=== PATIENT | female | born 1990 | race Caucasian/White ===

== ENCOUNTER 2017-03-15 15:02 | Inpatient (IN) | payer BC, OTHER ==
[~2017-03-15] VITALS: Ht 157.5 cm; Wt 49.4 kg
[2017-03-15 16:10] VITALS: BP 110/56
--- NOTE | 2017-03-15 16:22 | NUR ---
PRE-ASSESSMENT Pt is in intake office at this time. Pt is A/O x4, but reports "I am sleepy because I am coming off the meth." V/S: 98.2, HR:83, RR:16 even and unlabored, B/P:110/56, SpO2:99% room air, denies pain at this time. Pt ambulates with a steady gait. Pt noted to have bilateral arm swelling that she states are from IV drug use and are "possible abscesses." Pt is stable at this time. To continue admission when patient arrives on unit.
[2017-03-15 16:31] LABS: *URINE HCG, QUAL NEGATIVE (NEGATIVE)
--- NOTE | 2017-03-15 16:35 | NUR ---
ADMISSION NOTE Pt is a 26 year old male, admitted on 03/15/17 at 1635 for Benzo, Barbiturate, Opiate and methamphetamine dependence and medically supervised withdrawals. Pt is awake, alert, oriented x 4, gait is steady, pt is ambulatory without assistance. Pt denies having a PCP. Pt reports she has been to at least 10 rehabs but cannot recall any names, last rehab was in [place] 2 months ago for 1 week. Reports medical hx of insomnia, anxiety and depression. Denies talking any prescribed or OTC medication, pt does not have home medication. Denies history of seizures. Pt reports she was sober for 3 years in [id number]. Pt appears to be anxious and states she feels tired due to lack of sleep. COWS are 6, difficulty sitting still, mild diffuse muscle aches, yawning and CIWA is 6. Pt weights 109 pounds and height is 5'2. Pt states that she lives in a house with her boyfriend. Reports smoking 1 pack of cigarettes daily. Pt denies being admitted to a hospital in the past 30 days, pt is not a candidate for MRSA. V/S are T:98.2, HR is 83, SpO2 is 99%, RR 16 even and unlabored, B/P is 110/56, denies pain at this time. Denies SI/HI or hallucinations. Refuses PNA vaccination at this time. Pt is stable. Safety precautions are in place per hospital protocol, bed is locked and in lowest position, side rails up x2, call light within reach. Pt remains stable. Substance use Hx: 1.PO Xanax-10-20 mg-last used 10 mg on 03/06/17 2.PO Phenobarbital-120mg every 4 hours, last used 120 mg on 03/14/17 3.IV Heroin-2 grams daily-last used gram on 03/15/17 4.IV Igyfzerkiclqyxr-vrexhft-bjza used small amount on 03/15/17 at 1100
[2017-03-15 16:42] LABS: *AMPHETAMINE, URINE POSITIVE (NEGATIVE); *BARBITURATE, URINE POSITIVE (NEGATIVE); *CANNABINOID, URINE NEGATIVE (NEGATIVE); *COCCAINE, URINE NEGATIVE (NEGATIVE); *OPIATE, URINE POSITIVE (NEGATIVE); *PHENCYCLIDINE SCREEN,URINE NEGATIVE (NEGATIVE)
[2017-03-15] MEDS ORDERED: LOPERAMIDE HCL 2 MG CAPSULE PO PRN ×2 (17:00)
[2017-03-15] MEDS ORDERED: ONDANSETRON ODT 4 MG TAB.RAPDIS SL PRN (17:00)
[2017-03-15] MEDS ORDERED: BUPRENORPHINE HCL 2 MG TAB.SUBL SL PRN (17:00)
[2017-03-15] MEDS ORDERED: ACETAMINOPHEN 325 MG TABLET PO PRN (17:00)
[2017-03-15] MEDS ORDERED: DICYCLOMINE HCL 20 MG TABLET PO PRN (17:00)
[2017-03-15] MEDS ORDERED: HYDROXYZINE PAMOATE 25 MG CAPSULE PO PRN (17:00)
[2017-03-15] MEDS ORDERED: MAG HYDROX/AL HYDROX/SIMETH 30 ML LIQUID UDC PO PRN (17:00)
[2017-03-15] MEDS ORDERED: ONDANSETRON 4 MG/2 ML VIAL IM PRN (17:00)
[2017-03-15] MEDS ORDERED: MIRALAX 17 GM POWD.PACK PO PRN (17:00)
[2017-03-15] MEDS ORDERED: MAGNESIUM HYDROXIDE 30 ML LIQUID UDC PO PRN (17:00)
[2017-03-15] MEDS ORDERED: diphenhydrAMINE 50 MG CAPSULE PO PRN (17:00)
[2017-03-15 17:25] LABS: BASOPHILS # (AUTO) 0.1 K/uL (0.0-8.0); EOSINOPHILS # (AUTO) 0.1 K/uL (0.0-0.7); EOSINOPHILS % (AUTO) 0.8 % (0.0-7.0); HEMATOCRIT 33.9 % (31.2-41.9); HEMOGLOBIN 11.6 g/dL (10.9-14.3); LYMPHOCYTES # (AUTO) 1.5 K/uL (20.0-40.0); LYMPHOCYTES % (AUTO) 11.2 % (20.5-51.5); MEAN CORPUSCULAR HEMOGLOBIN 31.9 uug (24.7-32.8); MEAN CORPUSCULAR HGB CONC 34 g/dL (32.3-35.6); MEAN CORPUSCULAR VOLUME 92.9 fL (75.5-95.3); MONOCYTES # (AUTO) 0.4 K/uL (2.0-10.0); MONOCYTES % (AUTO) 3.4 % (0.0-11.0); NEUTROPHILS # (AUTO) 10.9 K/uL (1.8-8.9); NEUTROPHILS % (AUTO) 83.6 % (38.5-71.5); PLATELET COUNT (AUTO) 396 K/uL (179-408); RED BLOOD CELL COUNT(AUTO) 3.65 MIL/uL (3.63-4.92)
[2017-03-15] MEDS ORDERED: LORAZEPAM 2 MG/1 ML VIAL IM PRN (17:30)
[2017-03-15] MEDS ORDERED: DIAZEPAM 10 MG TABLET PO PRN ×2 (17:30)
[2017-03-15] MEDS ORDERED: DIAZEPAM 5 MG TABLET PO PRN (17:30)
[2017-03-15 17:37] LABS: ALANINE AMINOTRANSFERASE 30 U/L (14-59); ALBUMIN 3.8 g/dL (3.4-5.0); ALKALINE PHOSPHATASE 71 U/L (50-136); ASPARTATE AMINOTRANSFERASE 26 U/L (15-37); BILIRUBIN,TOTAL 0.3 mg/dL (0.2-1.0); CALCIUM 8.3 mg/dL (8.5-10.1); CARBON DIOXIDE 27 mmol/L (21-32); CHLORIDE 98 mmol/L (98-107); CREATININE 0.8 mg/dL (0.6-1.3); ETHANOL < 3 MG/DL (0-0); GFR 88 mL/min (>60); GLUCOSE 132 mg/dL (74-106); POTASSIUM 3.9 mmol/L (3.5-5.1); SODIUM SERUM 135 mmol/L (136-145); TOTAL PROTEIN, SERUM 7.5 g/dL (6.4-8.2); UREA NITROGEN, BLOOD 20 mg/dL (7-18)
[2017-03-15 17:41] LABS: BAND % (MANUAL) 6 % (0-10); EOSINOPHILS % (MANUAL) 1 % (0-8); LYMPHOCYTES % (MANUAL) 9 % (20-40); MONOCYTES % (MANUAL) 2 % (2-10); NEUTROPHILS % (MANUAL) 82 % (42-75); PLATELET ESTIMATE ADEQUATE
[2017-03-15 18:05] LABS: HIV-1 p24 ANTIGEN NON REACTIVE (NONREACTIVE); HIV-1/2 ANTIBODY NON REACTIVE (NONREACTIVE)
[2017-03-15 18:35] LABS: THYROID STIMULATING HORMONE 0.946 mIU/mL (0.358-3.740)
[2017-03-15] MEDS: IBUPROFEN 600 MG TABLET PO PRN (18:58)
--- NOTE | 2017-03-15 18:59 | NUR ---
PRN MOTRIN Pt complains of 6/10 headache and muscle aches. PRN Motrin administered as ordered. Night nurse to reassess.
--- NOTE | 2017-03-15 19:08 | NUR ---
END OF SHIFT Endorsed to shift superintendent nurse. 26 year old female patient admitted on 03/15/17 for benzo, opiate barbiturate and methamphetamine withdrawals. A/O x4. Denies hx of seizures. NKA, full code and regular diet. COWS 6 and CIWA 6 at 1645. Pt has adequate caloric intake. Denies N/V/D at this time. Pt is not yet on a taper. PRN Motrin 600mg was administered for headache and body aches, shift superintendent nurse to reassess. Urine was provided and positive for opiate, barbiturate an amphetamine. Pt remains safe. All needs met at this time. Safety precautions are in place, shift superintendent to continue monitoring.
[2017-03-15 20:00] VITALS: BP 107/70
--- NOTE | 2017-03-15 20:34 | NUR ---
START OF SHIFT NOTE/ MOTRIN PRN REASSESSMENT Pt is a 26 y/o female admitted for Xanax, Phenobarbital, and Meth dependence and use. Pt has NKA, but reported a PMH of depression, insomnia, and anxiety. Per day shift nurse pt has not been placed on a taper at this time but has PRN medication available for any discomfort. Pt received Motrin 600 mg PO PRN during the day shift (effective per pt stating " My head feels better. It's probably less than 01/27."). Last COW: 6 CIWA: 6. At this time pt is lying down in bed and stated " I'm okay I'm starting to feel sweaty and a little anxious." Pt was encouraged to notify staff of any changes in condition or of any concerns. Pt verbalized an understanding. All safety measures in place. Will continue to monitor.
[2017-03-15] MEDS: CLONIDINE HCL 0.1 MG TABLET PO PRN (21:10)
--- NOTE | 2017-03-15 21:11 | NUR ---
VALIUM, BENTYL, AND CLONIDINE PRN ADMINISTRATION Pt stated " I'm really anxious, sweaty, I have stomach cramps. I just feel like crap." Pt was assessed and currently has a COW score of 6 and a CIWA score of 5. Pt was given Bentyl 20 mg PO PRN, Clonidine 0.1 mg PO PRN, and Valium 5 mg PO PRN. Pt was encouraged to notify staff of any changes in condition or of any concerns. Pt verbalized an understanding. All safety measures in place. Will monitor for effectiveness.
--- NOTE | 2017-03-15 22:11 | NUR ---
VALIUM, BENTYL, AND CLONIDINE PRN REASSESSMENT Pt stated " I'm still a little sweaty, but my stomach cramps and anxiety aren't that bad anymore." Pt was advised to change her clothing or perhaps shower to help her feel better and cleanse herself from the sweating. PRNS effective. Will continue to monitor.
[2017-03-15] MEDS ORDERED: BUPRENORPHINE HCL 2 MG TAB.SUBL SL SCH (23:00)
[2017-03-15] MEDS ORDERED: DIAZEPAM 10 MG TABLET PO SCH (23:00)
[2017-03-16] VITALS: BP 93/47
[2017-03-16 04:00] VITALS: BP 92/50
--- NOTE | 2017-03-16 07:08 | NUR ---
Start of Shift Endorsement received from nightshift nurse. Pt is a 26 y/o female admitted for Xanax, Phenobarbital, Heroin and Methamphetamine dependence. Pt has been placed on a 5 day Valium and 5 day Subutex taper. PT is experiencing moderate withdrawals at this time AEB COWS 6, CIWA 5 at 1999. Pt received PRN clonidine, Valium and Bentyl for withdrawal symptoms. Pt reports sleeping 8 hours. VS WNL, Full Code. PT is alert and oriented x4. Pt is in STABLE condition at this time. Remains compliant with medication and diet regimen. All needs have been met, All safety measures in place per hospital policy. Bed in lowest position, side rails up x2, call-light within reach. Will continue to monitor
--- NOTE | 2017-03-16 07:25 | NUR ---
END OF SHIFT NOTE Pt is a 26 y/o female admitted for Xanax, Phenobarbital, and Meth dependence and use. Pt has NKA, but reported a PMH of depression, insomnia, and anxiety. Pt is scheduled to start a 5 day Valium and Subutex taper. Pt is also set to start Vancomycin ATB PO therapy r/t bilateral abscesses of the forearms. Pt received Valium 5 mg PO PRN, Clonidine 0.1 mg PO PRN, and Bentyl 20 mg PO PRN during the shift. Pt slept for a total of 8 hours. At this time pt is asleep in bed with no signs of discomfort/distress noted. All safety measures in place; side rail up x 2, bed locked and in low position and call light is within reach. Endorsed to the oncoming nurse.
[2017-03-16 08:00] VITALS: BP 102/65
[2017-03-16] MEDS ORDERED: VANCOMYCIN IV 750 MG in IV DEXTROSE 5% 250 ML IV SCH (09:00)
[2017-03-16] MEDS ORDERED: TUBERCULIN,PURIF.PROT.DERIV. 5 TU/0.1 ML TEST ID ONE (09:00)
[2017-03-16] MEDS ORDERED: GABAPENTIN 300 MG CAPSULE PO SCH (09:00)
[2017-03-16] MEDS: BUPRENORPHINE HCL 2 MG TAB.SUBL SL SCH ×4 (09:17→20:45)
[2017-03-16] MEDS: MULTIVITAMINS,THERAPEUTIC TABLET PO SCH (09:17)
[2017-03-16] MEDS: DIAZEPAM 10 MG TABLET PO SCH ×4 (09:17→20:43)
[2017-03-16] MEDS: BENZOCAINE ORAL CARE 12 ML BOTTLE MM PRN (10:14)
[2017-03-16] MEDS ORDERED: DIAZEPAM 10 MG TABLET PO ONE (11:45)
--- NOTE | 2017-03-16 11:55 | NUR ---
Unable to obtain peripheral IV line Attempt x 2 to obtain peripheral IV line access. Veins noted to infiltrate immediately after flashback of blood. Pt stated that she does not want any more IV attempts and that she wants to try PO antibiotics instead. Dr Mccarty notified.
[2017-03-16 12:00] VITALS: BP 100/67
[2017-03-16] MEDS ORDERED: DIAZEPAM 5 MG TABLET PO PRN (13:45)
[2017-03-16] MEDS ORDERED: DIAZEPAM 10 MG TABLET PO PRN ×2 (13:45)
[2017-03-16] MEDS: GABAPENTIN 300 MG CAPSULE PO SCH ×2 (15:09→20:43)
[2017-03-16 16:00] VITALS: BP 115/82
--- NOTE | 2017-03-16 19:08 | NUR ---
End of Shift Endorsement given to nightshift nurse. Pt is a 26 y/o female admitted for Xanax, Phenobarbital, Heroin and Methamphetamine dependence. Pt has been placed on a 5 day Valium and 5 day Subutex taper. PT is experiencing moderate withdrawals at this time AEB COWS 9, CIWA 5 at 1600. Both tapers were initiated at 0900 for COWS of 14 and CIWA 12. PT tolerated both medications. Administered one time dose of Valium 10mg per Dr. Mccarty. Pt refused IV and requested PO medication. Pt has been placed on Bactrim. Pt did not receive any PRN medications. Pt participated in groups and activities. Intake: 1500ml, Void x3, BM x1. VS WNL, Full Code. PT is alert and oriented x4. Pt is in STABLE condition at this time. Remains compliant with medication and diet regimen. All needs have been met, All safety measures in place per hospital policy. Bed in lowest position, side rails up x2, call-light within reach. Will continue to monitor
--- NOTE | 2017-03-16 19:50 | NUR ---
START OF SHIFT NOTE Pt is a 26 y/o female admitted for Xanax, Phenobarbital, and Meth dependence and use. Pt has NKA, but reported a PMH of depression, insomnia, and anxiety. Per day shift nurse pt was started on a 5 day Valium and Subutex taper and is tolerating medication well with no s/e or a/r reported. Pt is scheduled to start Bactrim DS ATB PO therapy r/t bilateral abscesses of the forearms. Vancomycin IV therapy was discontinued during the day shift. Pt received a x 1 dose of Valium 10 mg PO during the day shift. Last COW: 9 CIWA: 5 (1600). At this time pt is in the recreational room with other clients watching television. Pt stated " I'm okay. I didn't want the IV because it hurts too much. My arm feels better now though." Pt denies any pain/discomfort. Pt was encouraged to notify staff of any changes in condition or of any concerns. Pt verbalized an understanding. Will continue to monitor.
[2017-03-16 20:00] VITALS: BP 113/66
[2017-03-16] MEDS: IBUPROFEN 600 MG TABLET PO PRN (20:42)
--- NOTE | 2017-03-16 20:42 | NUR ---
MOTRIN PRN ADMINISTRATION Pt stated " I started my period. Can I have some pads and Motrin? I'm starting to get cramps ." Motrin 600 mg PO PRN was given. Pt was encouraged to notify staff of any changes in condition or of any concerns. Pt verbalized and understanding. All safety measures in place. Will monitor for effectiveness.
[2017-03-16] MEDS: SULFAMETH/TRIMETH 800/160 MG TABLET PO SCH (20:43)
--- NOTE | 2017-03-16 21:42 | NUR ---
MOTRIN PRN REASSESSMENT Pt stated " My stomach feels okay right now." PRN effective. Will continue to monitor.
[2017-03-17] VITALS: BP 107/63
--- NOTE | 2017-03-17 04:00 | NUR ---
COW, CIWA, AND VITALS REFUSED Pt refused to be assessed and have vitals taken at this time. Pt was encouraged x 3 with risks and benefits explained, but the pt still declined. All safety measures in place. Will continue to monitor. Addendum: 03/17/17 at 0515 by CLAUDIA STEVENS LVN Amended: Links added.
--- NOTE | 2017-03-17 06:48 | NUR ---
END OF SHIFT NOTE Pt is a 26 y/o female admitted for Xanax, Phenobarbital, and Meth dependence and use. Pt has NKA, but reported a PMH of depression, insomnia, and anxiety. Pt continues on a 5 day Valium and Subutex taper and is tolerating medication well with no s/e or a/r reported. Pt is also on Bactrim DS ATB PO therapy r/t bilateral abscesses of the forearms. Pt tolerated the first dose well with no s/e or a/r reported or noted. Pt received Motrin 600 mg PO PRN during the day shift. Last COW: 0 CIWA: 0 (0000). Pt slept for a total of 6 hours. All safety measures in place. Endorsed to the oncoming nurse.
--- NOTE | 2017-03-17 07:05 | NUR ---
Start of Shift Endorsement received from nightshift nurse. Pt is a 26 y/o female admitted for Xanax, Phenobarbital, Heroin and Methamphetamine dependence. Pt has been placed on a 5 day Valium and 5 day Subutex taper. PT is experiencing moderate withdrawals at this time AEB COWS 4, CIWA 2 at 1999. Pt received PRN Motrin. Pt started Bactrim antibiotics during nightshift. Reinforced education on s/e of Bactrim. Pt reports sleeping 6 hours. VS WNL, Full Code. PT is alert and oriented x4. Pt is in STABLE condition at this time. Remains compliant with medication and diet regimen. All needs have been met, All safety measures in place per hospital policy. Bed in lowest position, side rails up x2, call-light within reach. Will continue to monitor
[2017-03-17 08:00] VITALS: BP 100/60
[2017-03-17] MEDS: SULFAMETH/TRIMETH 800/160 MG TABLET PO SCH ×2 (08:44→21:50)
[2017-03-17] MEDS: MULTIVITAMINS,THERAPEUTIC TABLET PO SCH (08:44)
[2017-03-17] MEDS: BUPRENORPHINE HCL 2 MG TAB.SUBL SL SCH ×3 (08:44→21:49)
[2017-03-17] MEDS: BENZOCAINE ORAL CARE 12 ML BOTTLE MM PRN (08:45)
[2017-03-17] MEDS: GABAPENTIN 300 MG CAPSULE PO SCH ×3 (08:45→21:50)
[2017-03-17] MEDS: DIAZEPAM 10 MG TABLET PO SCH ×3 (08:45→21:50)
[2017-03-17 12:00] VITALS: BP 110/59
[2017-03-17] MEDS ORDERED: DIAZEPAM 10 MG TABLET PO ONE (12:15)
[2017-03-17 13:25] LABS: HCV AB <0.1 s/co ratio (0.0-0.9); HEPATITIS B CORE AB, IgM Negative (Negative); HEPATITIS B SURFACE AG Negative (Negative)
[2017-03-17 16:00] VITALS: BP 120/71
[2017-03-17 16:48] LABS: BASOPHILS % (AUTO) 0.4 % (0.0-2.0); EOSINOPHILS # (AUTO) 0.3 K/uL (0.0-0.7); EOSINOPHILS % (AUTO) 5.1 % (0.0-7.0); HEMATOCRIT 34.2 % (31.2-41.9); HEMOGLOBIN 12.1 g/dL (10.9-14.3); LYMPHOCYTES # (AUTO) 2.1 K/uL (20.0-40.0); LYMPHOCYTES % (AUTO) 36.8 % (20.5-51.5); MEAN CORPUSCULAR HEMOGLOBIN 32.7 uug (24.7-32.8); MEAN CORPUSCULAR HGB CONC 35 g/dL (32.3-35.6); MONOCYTES # (AUTO) 0.4 K/uL (2.0-10.0); MONOCYTES % (AUTO) 7.7 % (0.0-11.0); NEUTROPHILS # (AUTO) 2.8 K/uL (1.8-8.9); PLATELET COUNT (AUTO) 376 K/uL (179-408); RED BLOOD CELL COUNT(AUTO) 3.68 MIL/uL (3.63-4.92); WHITE BLOOD COUNT (AUTO) 5.6 K/uL (3.8-11.8)
[2017-03-17 17:10] LABS: CALCIUM 8.3 mg/dL (8.5-10.1); CREATININE 0.8 mg/dL (0.6-1.3); MAGNESIUM 2.3 mg/dL (1.8-2.4); POTASSIUM 4.7 mmol/L (3.5-5.1)
--- NOTE | 2017-03-17 19:12 | NUR ---
End of Shift Endorsement given to nightshift nurse. Pt is a 26 y/o female admitted for Xanax, Phenobarbital, Heroin and Methamphetamine dependence. Pt has been placed on a 5 day Valium and 5 day Subutex taper. PT is experiencing mild withdrawals at this time AEB COWS 4, CIWA 3 at 1600. PT tolerated both medications. Administered one time dose of Valium 10mg per Dr. Mccarty. . Pt has been placed on Bactrim. Pt did not receive any PRN medications. Pt participated in groups and activities. Intake: 1750ml, Void x7, BM x1. VS WNL, Full Code. PT is alert and oriented x4. Pt is in STABLE condition at this time. Remains compliant with medication and diet regimen. All needs have been met, All safety measures in place per hospital policy. Bed in lowest position, side rails up x2, call-light within reach. Will continue to monitor
--- NOTE | 2017-03-17 19:30 | NUR ---
START OF SHIFT NOTE : Pt is a 26 y/o female admitted for Xanax, Phenobarbital, Heroin and Methamphetamine dependence. Pt has been placed on a 5 day Valium and 5 day Subutex taper. Full Code. PT is alert and oriented x4. Pt is in STABLE condition at this time. PT is experiencing moderate withdrawals at this time AEB COWS 4, CIWA 3 at 16:00. Remains compliant with medication and diet regimen. All needs have been met, All safety measures in place per hospital policy. Bed in lowest position, side rails up x2, call-light within reach. Will continue to monitor
[2017-03-17 20:00] VITALS: BP 110/62
[2017-03-18 04:00] VITALS: BP 98/57
--- NOTE | 2017-03-18 06:55 | NUR ---
END OF SHIFT NOTE : Pt is a 26 y/o female admitted for Xanax, Phenobarbital, Heroin and Methamphetamine dependence. Pt has been placed on a 5 day Valium and 5 day Subutex taper. Full Code. PT is alert and oriented x4. Pt is in STABLE condition at this time. Pt remains compliant with the treatment plan. No PRNs were given during my shift. V/S remain WNL. RR=16, even and unlabored, lungs clear upon auscultation, abdomen soft and non- distended. Pt denies nausea, vomiting and diarrhea. LAST CIWA= 2 ,COWS=3 at 0400 , [id number] ml, voided x 2, slept 7 hours. Safety measures in place : bed on lowest position with side rails x2 up for safety, call light within reach. Will continue to monitor closely and offer help.
--- NOTE | 2017-03-18 07:30 | NUR ---
Start of shift note; Received report from night nurse. Patient is a 26 y/o female admitted on 03/15/17 for Opiate/benzo dependence. Patient was placed on a 5 day Valium and 5 day Subutex taper. Patient reported history of depression, insomnia and anxiety. Patient slept for 7 hours, last COWS of 2 and last CIWA of 3 per endorsement. Patient is currently resting with eyes closed, respirations even and unlabored. Bed in lowest position, call light within reach. Will continue to monitor patient.
[2017-03-18 08:00] VITALS: BP 96/62
[2017-03-18] MEDS: SULFAMETH/TRIMETH 800/160 MG TABLET PO SCH ×2 (08:55→20:40)
[2017-03-18] MEDS: GABAPENTIN 300 MG CAPSULE PO SCH ×3 (08:55→20:40)
[2017-03-18] MEDS: MULTIVITAMINS,THERAPEUTIC TABLET PO SCH (08:55)
[2017-03-18] MEDS: DIAZEPAM 5 MG TABLET PO SCH ×4 (08:55→20:40)
[2017-03-18] MEDS ORDERED: BUPRENORPHINE HCL 2 MG TAB.SUBL SL SCH (09:00)
[2017-03-18] MEDS: IBUPROFEN 600 MG TABLET PO PRN ×2 (11:44→20:40)
--- NOTE | 2017-03-18 11:53 | NUR ---
PRN medication; Patient is complaining of neck pain and headache rated 7/10. PRN Motrin 600mg PO PRN given for pain. Will continue to monitor patient for effectiveness of medication.
[2017-03-18 12:00] VITALS: BP 103/67
--- NOTE | 2017-03-18 12:53 | NUR ---
Re-assessment; Patient denies pain at this time, PRN medication is effective. Will continue to monitor patient.
[2017-03-18] MEDS: BUPRENORPHINE HCL 2 MG TAB.SUBL SL SCH ×2 (15:34→20:41)
[2017-03-18 16:00] VITALS: BP 119/75
--- NOTE | 2017-03-18 18:26 | NUR ---
End of shift note; Patient is AOx4. Patient is a 26 y/o female admitted on 03/15/17 for Opiate/benzo dependence. Patient was placed on a 5 day Valium and 5 day Subutex taper. Patient reported history of depression, insomnia and anxiety. Patient remained compliant with treatment plan and medication regime.Medications were effective in reducing withdrawal symptoms. Patient is on fall and seizure precaution. Bed in lowest position, call light within reach.
--- NOTE | 2017-03-18 19:30 | NUR ---
START OF SHIFT NOTE : Pt is a 26 y/o female admitted for Xanax, Phenobarbital, Heroin and Methamphetamine dependence. Pt has been placed on a 5 day Valium and 5 day Subutex taper. Full Code. PT is alert and oriented x4. Pt is in STABLE condition at this time. PT is experiencing mild withdrawals, at this time COWS 4, CIWA 3 at 19:00. Remains compliant with medication and diet regimen. All needs have been met, All safety measures in place per hospital policy. Bed in lowest position, side rails up x2, call-light within reach. Will continue to monitor
[2017-03-18 20:00] VITALS: BP 103/69
--- NOTE | 2017-03-18 21:00 | NUR ---
PRN IBUPROFEN Patient complains of body ache /10. PRN Ibuprofen given as ordered. Safety measures in place : bed on lowest position with side rails x2 up for safety, call light within reach. Will continue to monitor closely and offer help.
[2017-03-18] MEDS ORDERED: ASPIRIN/ACETAMINOPHEN/CAFFEINE TABLET PO PRN (21:30)
[2017-03-18] MEDS ORDERED: METHYL SALICYLATE/MENTHOL CREAM 28 GM TUBE TOP PRN (21:30)
--- NOTE | 2017-03-18 21:55 | NUR ---
REASSESSMENT Ibuprofen Patient is able to rest quietly, states decreased level of pain, 2-3/10, is ready to sleep.Safety measures in place : bed on lowest position with side rails x2 up for safety, call light within reach. Will continue to monitor closely and offer help.
--- NOTE | 2017-03-19 07:18 | NUR ---
END OF SHIFT NOTE : Pt is a 26 y/o female admitted for Xanax, Phenobarbital, Heroin and Methamphetamine dependence. Pt has been placed on a 5 day Valium and 5 day Subutex taper. Full Code. PT is alert and oriented x4. Pt is in STABLE condition at this time. Pt remains compliant with the treatment plan. PRNs MOTRIN was given during my shift. V/S remain WNL. RR=16, even and unlabored, lungs clear upon auscultation, abdomen soft and non- distended. Pt denies nausea, vomiting and diarrhea. LAST CIWA= 2 ,COWS=3 at 0400 , [id number] ml, voided x 2, slept 7 hours. Safety measures in place : bed on lowest position with side rails x2 up for safety, call light within reach. Will continue to monitor closely and offer help.
--- NOTE | 2017-03-19 07:41 | NUR ---
Start of shift note; Received report from night nurse. Patient is a 26 y/o female admitted on 03/15/17 for Opiate/benzo dependence. Patient was placed on a 5 day Valium and 5 day Subutex taper, no adverse reactions noted. Patient reported history of depression, insomnia and anxiety. Patient slept for 6 hours. Patient is currently resting with eyes closed, respirations even and unlabored. Bed in lowest position, call light within reach. Will continue to monitor patient.
[2017-03-19 08:00] VITALS: BP 120/68
[2017-03-19] MEDS: MULTIVITAMINS,THERAPEUTIC TABLET PO SCH (09:07)
[2017-03-19] MEDS: BUPRENORPHINE HCL 2 MG TAB.SUBL SL SCH ×3 (09:07→21:20)
[2017-03-19] MEDS: SULFAMETH/TRIMETH 800/160 MG TABLET PO SCH ×2 (09:07→21:20)
[2017-03-19] MEDS: DIAZEPAM 5 MG TABLET PO SCH ×3 (09:07→21:20)
[2017-03-19] MEDS: IBUPROFEN 600 MG TABLET PO PRN (09:07)
[2017-03-19] MEDS: GABAPENTIN 300 MG CAPSULE PO SCH ×3 (09:07→21:21)
--- NOTE | 2017-03-19 09:07 | NUR ---
PRN medication; patient is complaining of generalized pain rated 6/10. Patient Motrin 600mg PO PRN given for pain. Will closely monitor patient for effectiveness of medication.
--- NOTE | 2017-03-19 10:07 | NUR ---
Re-assessment; Patient denies any pain at this time. PRN medication is effective. Will continue to monitor patient.
[2017-03-19 12:00] VITALS: BP 101/68
[2017-03-19 16:00] VITALS: BP 110/64
--- NOTE | 2017-03-19 19:30 | NUR ---
START OF SHIFT NOTE : Pt is a 26 y/o female admitted for Xanax, Phenobarbital, Heroin and Methamphetamine dependence. Pt has been placed on a 5 day Valium and 5 day Subutex taper, started on 03/18/2017. Full Code. PT is alert and oriented x4. Pt is in STABLE condition at this time. PT is experiencing mild withdrawals, at this time COWS=2, CIWA=2 at 19:00. Remains compliant with medication and diet regimen. All needs have been met. Safety measures in place : bed on lowest position with side rails x2 up for safety, call light within reach. Will continue to monitor closely and offer help.
[2017-03-19 20:00] VITALS: BP 93/73
--- NOTE | 2017-03-20 06:49 | NUR ---
END OF SHIFT NOTE : Pt is a 26 y/o female admitted for Xanax, Phenobarbital, Heroin and Methamphetamine dependence. Pt has been placed on a 5 day Valium and 5 day Subutex taper. Full Code. PT is alert and oriented x4. Pt is in STABLE condition at this time. Pt remains compliant with the treatment plan.No PRNs were given during my shift. V/S remain WNL. RR=16, even and unlabored, lungs clear upon auscultation, abdomen soft and non- distended. Pt denies nausea, vomiting and diarrhea. LAST CIWA= 2 ,COWS=2 at 0400 , [id number] ml, voided x 3, slept 6 hours. Safety measures in place : bed on lowest position with side rails x2 up for safety, call light within reach. Will continue to monitor closely and offer help.
--- NOTE | 2017-03-20 07:43 | NUR ---
START OF SHIFT Received report from shift commander nurse. 26 year old female patient admitted on 03/15/17 for Xanax, Phenobarbital, Heroin, and Methamphetamine dependence. Pt has been placed on a 5 day Valium and 5 day Subutex taper and is tolerating well. Pt has medical history of depression, insomnia, and anxiety. Pt complained of leg pain at night, but pain was decreased with ordered medications. Pt has inflammation in mouth and is receiving Bactrim. Pt most recent COWS is 2 and CIWA 2. V/S are WNL. Pt is resting in bed at this time, RR even and unlabored. All needs met. Will continue to monitor.
[2017-03-20 08:09] VITALS: BP 98/66
[2017-03-20] MEDS: MULTIVITAMINS,THERAPEUTIC TABLET PO SCH (08:54)
[2017-03-20] MEDS: SULFAMETH/TRIMETH 800/160 MG TABLET PO SCH ×2 (08:54→21:32)
[2017-03-20] MEDS: BUPRENORPHINE HCL 2 MG TAB.SUBL SL SCH ×2 (08:54→21:32)
[2017-03-20] MEDS: DIAZEPAM 5 MG TABLET PO SCH ×2 (08:55→21:32)
[2017-03-20] MEDS: GABAPENTIN 300 MG CAPSULE PO SCH ×3 (08:55→21:32)
[2017-03-20 12:22] VITALS: BP 102/63
[2017-03-20] MEDS: CLONIDINE HCL 0.1 MG TABLET PO PRN (12:23)
[2017-03-20] MEDS: IBUPROFEN 600 MG TABLET PO PRN (12:23)
[2017-03-20] MEDS ORDERED: VALACYCLOVIR HCL 500 MG TABLET PO ONE (12:45)
--- NOTE | 2017-03-20 12:49 | NUR ---
PRN CLONIDINE/MOTRIN Pt complains of increased anxiety and 6/10 headache. PRN Clonidine administered for anxiety per MD order and Motrin administered for pain. CIWA is 4. Will reassess.
[2017-03-20 13:23] VITALS: BP 99/65
--- NOTE | 2017-03-20 13:49 | NUR ---
REASSESSMENT Pt states headache decreased to 2/10 and Clonidine was effective, reports decreased anxiety. Medications were effective.
--- NOTE | 2017-03-20 14:33 | NUR ---
REFUSING GABAPENTIN Pt is refusing ordered dose of Gabapentin stating she does not need it, and feels "okay without it." Will notify
[2017-03-20 17:30] VITALS: BP 103/68
--- NOTE | 2017-03-20 18:39 | NUR ---
END OF SHIFT 26 year old female patient admitted on 03/15/17 for Xanax, Phenobarbital, Heroin, and Methamphetamine dependence. Pt has been placed on a 5 day Valium and 5 day Subutex taper and is tolerating well. Per pt request, Gabapentin was discontinued. Pt has medical history of depression, insomnia, and anxiety. Pt has inflammation in mouth and is receiving Bactrim and Valacyclovir for genital rash. PRN Clonidine and Motrin administered and effective. Pt most recent COWS is 3 and CIWA 3 at 1700. V/S are WNL. Pt encouraged to attend groups and activities. All needs met. manager interventional nurse will continue to monitor.
--- NOTE | 2017-03-20 19:20 | NUR ---
START OF SHIFT NOTE : Pt is a 26 y/o female admitted for Xanax, Phenobarbital, Heroin and Methamphetamine dependence. Pt has been placed on a 5 day Valium and 5 day Subutex taper, started on 03/18/2017. Full Code. PT is alert and oriented x4. Pt is in STABLE condition at this time. PT is experiencing mild withdrawals, at this time COWS=3, CIWA=3 at 17:00. Remains compliant with medication and diet regimen. PATIENT IS STARTED ON VALTREX genital rash, NO ADVERSE REACTION NOTED. ENCOURAGE FLUIDS.All needs have been met. Safety measures in place : bed on lowest position with side rails x2 up for safety, call light within reach. Will continue to monitor closely and offer help.
[2017-03-20 20:00] VITALS: BP 101/58
[2017-03-20] MEDS: VALACYCLOVIR HCL 500 MG TABLET PO SCH (21:31)
[2017-03-21 04:00] VITALS: BP 95/49
--- NOTE | 2017-03-21 06:51 | NUR ---
END OF SHIFT NOTE : Pt is a 26 y/o female admitted for Xanax, Phenobarbital, Heroin and Methamphetamine dependence. Pt has been placed on a 5 day Valium and 5 day Subutex taper. Full Code. PT is alert and oriented x4. Pt is in STABLE condition at this time. Pt remains compliant with the treatment plan. No PRNs were given during my shift. V/S remain WNL. RR=16, even and unlabored, lungs clear upon auscultation, abdomen soft and non- distended. Pt denies nausea, vomiting and diarrhea. LAST CIWA=1 ,COWS=1 at 0400 , [id number] ml, voided x 1, slept 4 hours. Safety measures in place : bed on lowest position with side rails x2 up for safety, call light within reach. Will continue to monitor closely and offer help.
--- NOTE | 2017-03-21 07:30 | NUR ---
Start of shift note; Received report from night nurse. Patient is a 26 y/o female admitted on 03/15/17 for Opiate/benzo dependence. Patient was placed on a 5 day Valium and 5 day Subutex taper, no adverse reactions noted. Patient reported history of depression, insomnia and anxiety. Patient slept for 5 hours. Patient is currently resting with eyes closed, respirations even and unlabored. Bed in lowest position, call light within reach. Will continue to monitor patient.
[2017-03-21 08:00] VITALS: BP 98/67
[2017-03-21] MEDS ORDERED: BUPRENORPHINE HCL 2 MG TAB.SUBL SL SCH (09:00)
[2017-03-21] MEDS: VALACYCLOVIR HCL 500 MG TABLET PO SCH ×2 (09:05→20:58)
[2017-03-21] MEDS: MULTIVITAMINS,THERAPEUTIC TABLET PO SCH (09:05)
[2017-03-21] MEDS: GABAPENTIN 300 MG CAPSULE PO SCH ×3 (09:05→20:59)
[2017-03-21] MEDS: SULFAMETH/TRIMETH 800/160 MG TABLET PO SCH (09:05)
[2017-03-21 12:00] VITALS: BP 101/63
[2017-03-21 14:48] LABS: *AMPHETAMINE, URINE NEGATIVE (NEGATIVE); *BARBITURATE, URINE POSITIVE (NEGATIVE); *CANNABINOID, URINE NEGATIVE (NEGATIVE); *COCCAINE, URINE NEGATIVE (NEGATIVE); *OPIATE, URINE NEGATIVE (NEGATIVE); *PHENCYCLIDINE SCREEN,URINE NEGATIVE (NEGATIVE)
[2017-03-21] MEDS: CLONIDINE HCL 0.1 MG TABLET PO PRN (15:06)
--- NOTE | 2017-03-21 15:06 | NUR ---
PRN medication; Patient appears agitated and slightly anxious. PRN Clonidine 0.1mg given PO per MD order. Will continue to monitor patient.
[2017-03-21 16:00] VITALS: BP 100/61
--- NOTE | 2017-03-21 16:06 | NUR ---
Re-assessment; Patient appears calm and comfortable at this time, patient's BP is 100/61. PRN medication is effective.
[2017-03-21] MEDS ORDERED: VALA500T PO (17:11)
[2017-03-21] MEDS ORDERED: Gabapentin PO (17:11)
[2017-03-21] MEDS ORDERED: DICY20TA28 PO (17:11)
[2017-03-21] MEDS ORDERED: CLON0.1T14 PO (17:11)
[2017-03-21] MEDS ORDERED: HYDR-3895 PO (17:11)
[2017-03-21] MEDS ORDERED: METH-33 PO (17:11)
[2017-03-21] MEDS ORDERED: Ibuprofen PO (17:11)
[2017-03-21] MEDS ORDERED: DIPH50CA37 PO (17:11)
--- NOTE | 2017-03-21 18:17 | NUR ---
End of shift note; Patient is AOx4. Patient is a 26 y/o female admitted on 03/15/17 for Opiate/benzo dependence. Patient was placed on a 5 day Valium and 5 day Subutex taper, completed taper without any adverse reactions. Patient reported history of depression, insomnia and anxiety. Patient remained compliant with treatment plan and medication regime.Medications were effective in reducing withdrawal symptoms. Patient is scheduled for discharge tomorrow. Patient is on fall and seizure precaution. Bed in lowest position, call light within reach.
--- NOTE | 2017-03-21 19:30 | NUR ---
START OF SHIFT-- Patient is a 26 y/o female admitted for Opiate/benzo dependence. Patient completed taper without any adverse reactions. Patient has PMH of depression, insomnia and anxiety. Patient remains compliant with treatment plan and medication regime. Patient is scheduled for discharge tomorrow. Patient is on fall and seizure precaution. All safety measures in place per hospital policy. Bed in lowest position, side rails up x2, call-light within reach. Will continue to monitor.
[2017-03-21 20:00] VITALS: BP 102/61
--- NOTE | 2017-03-21 21:00 | NUR ---
PRN MEDS-- PT C/O ANXIETY AND INSOMNIA.PRN MEDS VISTARIL AND BENADRYL GIVEN ORDERED.PT REFUSED TO TAKE HS DOSE OF NEURONTIN.WILL CONTINUE TO MONITOR.
--- NOTE | 2017-03-21 22:02 | NUR ---
PRN F/U-- PT VERBALIZES A DECREASE IN ANXIETY,SEEN RESTING IN BED,FEELING SLEEPY BUT STILL AWAKE.WILL MONITOR.
[2017-03-22] VITALS: BP 86/45
--- NOTE | 2017-03-22 04:00 | NUR ---
PT REFUSED V/S.COWS AND CIWA DEFERRED.
--- NOTE | 2017-03-22 06:49 | NUR ---
END OF SHIFT NOTE--- Patient is a 26 y/o female admitted for Opiate/benzo dependence. Patient completed taper without any adverse reactions. Patient has PMH of depression, insomnia and anxiety. Patient remains compliant with treatment plan and medication regime. Patient is scheduled for discharge today at 0700 to be picked up by Mom. Patient is on fall and seizure precaution. Pt refused to take Neurontin last night.PRN Benadryl and Vistaril given.Pt slept 7 hrs last night,fluid intake was 1000 mls,voided x 2. All safety measures in place per hospital policy. Bed in lowest position, side rails up x2, call-light within reach. Will continue to monitor.
--- NOTE | 2017-03-22 07:20 | NUR ---
DISCHARGE NOTE-- PT WAS ADMITTED FOR OPIATE/BENZO DEPENDENCY.SHE COMPLETED HER TAPERS,NO A/R NOTED.NO C/O PAIN OR S/S OF WITHDRAWALS NOTED.ALL PERSONAL BELONGINGS/VALUABLES AND PRESCRIPTION GIVEN TO PT.PT VERBALIZED UNDERSTANDING OF DISCHARGE INSTRUCTIONS.PT DISCHARGED IN A STABLE CONDITION.SHE IS PICKED UP BY HER MOTHER.
[2017-03-27 10:12] LABS: *AMOBARBITAL Negative (Cutoff=200); *BUTALBITAL Negative (Cutoff=200); *PENTOBARBITAL Negative (Cutoff=200); *PHENOBARBITAL Positive (.); *SECOBARBITAL Negative (Cutoff=200)
[2017-03-27 11:13] LABS: *AMPHETAMINE Positive (.); *CODEINE Positive (.); *HYDROMORPHONE Negative (Cutoff=300); *METHAMPHETAMINE Positive (.); *OPIATES Positive ng/mL (Cutoff=300)
== END 2017-03-22 07:20 | disposition home or self-care (01) | DRG 895 ==
LOC: SRC 15:19
PROVIDERS: ADMIT Internal Medicine; ATTEND Internal Medicine
DX: F11.23 Opioid dependence with withdrawal (principal); L03.114 Cellulitis of left upper limb; L03.113 Cellulitis of right upper limb; E87.1 Hypo-osmolality and hyponatremia; Z81.1 Family history of alcohol abuse and dependence; Z59.0 Homelessness; Z59.1 Inadequate housing; S41.132S Puncture wound without foreign body of left upper arm, sequela; S41.131S Puncture wound without foreign body of right upper arm, sequela; L08.9 Local infection of the skin and subcutaneous tissue, unspecified; X78.8XXS Intentional self-harm by other sharp object, sequela; Z81.8 Family history of other mental and behavioral disorders; F17.210 Nicotine dependence, cigarettes, uncomplicated; E86.0 Dehydration; F41.9 Anxiety disorder, unspecified; G47.00 Insomnia, unspecified; F32.9 Major depressive disorder, single episode, unspecified; F13.230 Sedative, hypnotic or anxiolytic dependence with withdrawal, uncomplicated; F15.220 Other stimulant dependence with intoxication, uncomplicated; A60.00 Herpesviral infection of urogenital system, unspecified; G44.209 Tension-type headache, unspecified, not intractable
CPT/HCPCS: 36415; 70030-TC; 80307; 80324; 80345; 80361; 83735; 84100; 84443; 84703; 85025; 86580; 86592; 86705; 86803; 87340; 87806; A4663; A9150; G6040-TC; J3370; J7060; Q0162; Q0163